=== PATIENT | female | born 1985 | race Caucasian/White ===

== ENCOUNTER 2024-12-18 15:08 | Outpatient (CLI) | payer OTHER, SELFPAY ==
--- NOTE | ~2024-12-18 | US_ITS ---
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 FINDINGS: 2 para 1 Estimated date of delivery by last menstrual period is 06/26/2025 The uterus measures 11.0 x 7.5 x 8.8 cm. A gestational sac is identified within the uterus. A pole is identified, with a crown-rump length that measures 6.1 cm, corresponding to an approx imate gestational age of 12 weeks and 4 days. cardiac activity is identified at a rate of 166 bpm. The right ovary measures 2.4 x 1.9 x 2.4 cm. The left ovary measures 2.7 x 1.7 x 1.6 cm. Estimated date of delivery by ultrasound is 06/28/2025 IMPRESSION: Single intrauterine gestation with an approximate gestational age of 12 weeks and 4 days, with cardiac activity identified. Reviewed, dictated and finalized at location A. ORN HEARING SCREENER IMPRESSION: Single intrauterine gestation with an approximate gestational age of 12 weeks a nd 4 days, with cardiac activity identified.
== END 2024-12-18 15:09 | disposition home or self-care (01) ==
PROVIDERS: PCP Obstetrics & Gynecology; Visit Provider Nurse Practitioner Obstetrics & Gynecology
DX: Z34.91 Encounter for supervision of normal pregnancy, unspecified, first trimester (principal); Z3A.12 12 weeks gestation of pregnancy
CPT/HCPCS: 76801